=== PATIENT | male | born 1975 | race Caucasian/White ===

== ENCOUNTER 2024-02-01 02:43 | Emergency (ER) | payer MEDICAID ==
[~2024-02-01] VITALS: Ht 177.8 cm; Wt 56.8 kg
[2024-02-01 03:10] VITALS: TEMP 99.1
[2024-02-01 05:16] VITALS: BP 141/83; PULSE 73; RESP 16; O2SAT 100
[2024-02-01] MEDS ORDERED: ESZO1TAB11 PO (05:17)
[2024-02-01] MEDS: LORazepam 1 MG tablet PO ONE (05:23)
[2024-02-01] MEDS: traZODone 50mg tablet PO ONE (05:23)
[2024-02-01] MEDS: metoclopramide 10mg tablet PO ONE (05:23)
== END 2024-02-01 05:31 | disposition home or self-care (01) ==
LOC: ER 02:45
DX: G47.00 Insomnia, unspecified (principal); F41.9 Anxiety disorder, unspecified; Z56.0 Unemployment, unspecified
CPT/HCPCS: 99284